=== PATIENT | male | born 1970 | race Caucasian/White ===

== ENCOUNTER → 2017-07-23 | Outpatient (CLI) | payer MEDICARE ==
--- NOTE | 2017-07-23 19:41 | XCELERA REPORT ---
[address] [address] Transthoracic Echocardiogram Report Name: JONATHAN EUGENE Age: 47 yrs Gender: Male : 1970 Patient Status: Outpatient Patient Location: Study Date: 07/23/2017 03:23 PM Height: 64 in Weight: 190 lb BSA: 1.9 m2 Reason For Study: EDEMA Ordering Physician: BRANDON RAMIREZ Performed By: Dayan Swanson Interpretation Summary Trace TR with no pulm hypertension RVSP 22. no RV or RA enlargement. No posterior pericardial effusion. NormaL 3 cusps AV with no , no AR. No MAC, no MS, noMVP, no MR, LA appears enlarged by M mode , no BEVERLY measured by audiology technician No LVH, normal [id number]%, with no LV diastolic dysfunction, no Regional wall motion abnormality. , no LV enlargement. Summary = Edema, non cardiac. MMode/2D Measurements & Calculations RVDd: 2.9 cm LVIDd: 4.7 cm FS: 32.1 % Ao root diam: 3.1 cm IVSd: 0.99 cm LVIDs: 3.2 cm EDV(Teich): 103.9 ml LVPWd: 0.98 cmESV(Teich): 41.4 ml Ao root area: 7.8 cm2 EF(Teich): 60.2 % LVOT diam: 2.2 cm LVOT area: 3.7 cm2 Doppler Measurements & Calculations MV E max pilo: MV dec slope: Ao V2 max: LV V1 max P.7 cm/sec 283.3 cm/sec2 158.2 cm/sec 6.3 mmHg MV A max pilo: MV dec time: Ao max PG: LV V1 max: 67.1 cm/sec 0.24 sec 10.0 mmHg 125.3 cm/sec MV E/A: 0.99 PAIGE(V,D): 3.0 cm2 PA V2 max: TR max pilo: 97.7 cm/sec 215.9 cm/sec PA max PG: TR max P.6 mmHg 3.8 mmHg Left Ventricle The left ventricle is grossly normal size. The left ventricular ejection fraction is normal. The Ejection Fraction estimate is 55-60%. Doppler measurements suggest normal left ventricular diastolic function. Regional wall motion abnormalities cannot be excluded due to limited visualization. The left ventricular apex is not well visualized. Right Ventricle The right ventricle is normal in size, thickness and function. The right ventricular systolic function is normal. Atria The right atrium is normal. The left atrium is moderately dilated. The interatrial septum is intact with no evidence for an atrial septal defect. Mitral Valve The mitral valve leaflets appear normal. There is no evidence of stenosis, fluttering, or prolapse. There is no evidence of mitral valve prolapse. There is no mitral valve stenosis. There is no mitral regurgitation noted. Aortic Valve The aortic valve is normal in structure and functions normally. The aortic valve opens well. There is no aortic valvular vegetation. There is no aortic valve stenosis. No aortic regurgitation is present. Great Vessels The aortic root is normal size. Effusions There is no pericardial effusion. I WMSI = 1.00 % Normal = 100 Segments Size X - Cannot 2 - 4 - 1-2 small Interpret 1 - Normal Hypokinetic 3 - AkineticDyskinetic 3-5 moderate 5 - 6-14 large Aneurysmal 15-16 diffuse : BRANDON RAMIREZ > Good Garcia
== END ==
LOC: SP 15:07
PROVIDERS: ATTEND Family Medicine
DX: R60.0 Localized edema (principal)
CPT/HCPCS: 93306